=== PATIENT | female | born 1960 | race American Indian/Alaskan Native ===

== ENCOUNTER 2017-01-27 17:15 | Inpatient (IN) | payer OTHER ==
[2017-01-27 19:18] LABS: Basophils % (Auto) 1.7 % (0.0-1.8); Eosinophils % (Auto) 1.2 % (0.0-4.3); Hematocrit 38.7 % (30.3-42.9); Hemoglobin 12.9 gm/dl (10.1-14.3); Mean Corpuscular HGB Conc 33 % (30-34); Mean Corpuscular Hemoglobin 28 pg (28-32); Mean Corpuscular Volume 84 fl (79-97); Platelet Count 180 K/mm3 (140-440); Red Blood Count 4.63 M/mm3 (3.65-5.03); Red Cell Distribution Width 13.3 % (13.2-15.2); White Blood Count 3.2 K/mm3 (4.5-11.0)
[2017-01-27 19:26] LABS: Anion Gap 14 mmol/L; BUN/Creatinine Ratio 13.33; Blood Urea Nitrogen 8 mg/dL (7-17); Carbon Dioxide 29 mmol/L (22-30); Glucose 293 mg/dL (65-100); Potassium 3.8 mmol/L (3.6-5.0); Sodium 136 mmol/L (137-145)
[2017-01-27 19:30] LABS: INR 1.05 (0.87-1.13); Partial Thromboplastin Time 22.9 Sec. (24.2-36.6)
--- NOTE | 2017-01-27 19:38 | Cat Scan Report ---
FINAL REPORT EXAM: CT HEAD/BRAIN WO CON HISTORY: neuro deficits TECHNIQUE: Noncontrast serial axial images from skull base to vertex. PRIORS: None. FINDINGS: There is no mass effect or midline shift. There are no abnormal intra or extra-axial fluid collections. Cortical sulci and lateral ventricles are within normal limits for size and configuration. Basilar cisterns are patent. No acute intracranial hemorrhage is identified. There is an asymmetric hypodense focus in the right basal ganglia that measures approximately 13 x 7 millimeters in axial dimension. Visualized paranasal sinuses and mastoid air cells are well aerated. No acute osseous abnormality is identified. IMPRESSION: 1. No abnormal mass or acute intracranial hemorrhage is identified. 2. Asymmetric hypodense focus in the right basal ganglia suggests infarct. There are currently no studies available for direct comparison. If there is concern for acute or subacute infarct, consider MRI with diffusion-weighted imaging for further evaluation.
[2017-01-27] MEDS ORDERED: LOPRESSOR PO ONE (21:36)
[2017-01-27] MEDS ORDERED: ASPIRIN PO ONE (21:36)
--- NOTE | 2017-01-27 21:37 | Emergency Department Report ---
ED Neuro Deficit HPI - General Chief Complaint: Dizziness Stated Complaint: OFF BALANCE/FELL 3 TIMES TODAY Time Seen by Provider: 01/27/17 21:21 Source: patient Mode of arrival: Ambulatory Limitations: No Limitations - History of Present Illness Initial Comments: This is a pleasant active 56-year-old female who reports three-day history of having some difficulty and unsteadiness when walking. She describes it as feeling somewhat dizzy and listing to the left side. She denies any headache associated with this. Denies any chest pain. States that she has not followed up with a doctor for quite some time. She also indicates some mild sensation of heaviness in the left arm she does not feel that there is any weakness however. She denies any specific trauma. She is quite active in general. She states she was even unloading a truck last night. Denies any vision changes or speech difficulties. Associated Symptoms: denies: confusion, chest pain, cough, loss of appetite, shortness of breath - Related Data Allergies/Adverse Reactions: Allergies Allergy/AdvReac Type Severity Reaction Status Date / Time shellfish derived AdvReac Intermediate CAN'T Verified 01/27/17 17:42 BREATHE, MOUTH,THROAT & LIPS SWELL ED Review of Systems ROS: Stated complaint: OFF BALANCE/FELL 3 TIMES TODAY Other details as noted in HPI Comment: All other systems reviewed and negative Constitutional: denies: chills, fever Eyes: denies: eye pain, eye discharge, vision change ENT: denies: ear pain, throat pain Respiratory: denies: cough, shortness of breath, wheezing Cardiovascular: denies: chest pain, palpitations Endocrine: no symptoms reported Gastrointestinal: denies: abdominal pain, nausea, diarrhea Genitourinary: denies: urgency, dysuria, discharge Musculoskeletal: denies: back pain, joint swelling, arthralgia Skin: denies: rash, lesions Neurological: abnormal gait, vertigo. denies: headache, weakness, paresthesias Psychiatric: denies: anxiety, depression Hematological/Lymphatic: denies: easy bleeding, easy bruising ED Past Medical Hx - Past Medical History Hx Hypertension: Yes Hx Diabetes: Yes Additional medical history: fibroids. palpitations - Surgical History Additional Surgical History: partial hysterectomy - Social History Smoking Status: Former Smoker Substance Use Type: Alcohol ED Neuro Physical Exam - General Limitations: No Limitations General appearance: alert, in no apparent distress Suspected Stroke: No - Head Head exam: Present: atraumatic, normocephalic - Eye Eye exam: Present: normal appearance, EOMI. Absent: scleral icterus - ENT ENT exam: Present: normal exam, normal orophraynx, mucous membranes moist - Neck Neck exam: Present: normal inspection. Absent: meningismus, lymphadenopathy - Respiratory Respiratory exam: Present: normal lung sounds bilaterally. Absent: respiratory distress, wheezes - Cardiovascular Cardiovascular Exam: Present: regular rate, normal rhythm. Absent: systolic murmur, diastolic murmur, rubs, gallop - GI/Abdominal GI/Abdominal exam: Present: soft, normal bowel sounds. Absent: distended, tenderness - Extremities Exam Extremities exam: Present: normal inspection. Absent: tenderness, normal capillary refill, pedal edema, calf tenderness - Back Exam Back exam: Present: normal inspection. Absent: tenderness, CVA tenderness (R), CVA tenderness (L) - Neurological Exam Neurological exam: Present: alert, oriented X3, CN II-XII intact, normal gait, reflexes normal, other (downward Babinski bilaterally. Finger to nose is appropriate. Normal proprioception. Is able to do tandem gait without any difficulty at this time as well.). Absent: motor sensory deficit - NIHSS Assessment Interval: Baseline 1a. Level of Consciousness: alert 1b. LOC Questions: answers correctly 1c. LOC Commands: performs tasks correctly 2. Best Gaze: normal 3. Visual: no visual loss 4. Facial Palsy: normal symmetrical movement 5b. Motor Arm Right: no drift 5a. Motor Arm Left: no drift 6a. Motor Leg Left: no drift 6b. Motor Leg Right: no drift 7. Limb Ataxia: absent 9. Best Language: no aphasia 10. Dysarthria: normal 11. Extinction/Inattention: no abnormality - Psychiatric Psychiatric exam: Present: normal affect, normal mood - Skin Skin exam: Present: warm, dry, intact, normal color. Absent: rash ED Course Vital Signs 01/27/17 01/27/17 17:20 21:39 Temperature 98.2 F Pulse Rate 100 H 86 Respiratory 19 18 Rate Blood Pressure 196/124 Blood Pressure 209/124 [Left] O2 Sat by Pulse 98 100 Oximetry - Reevaluation(s) Reevaluation #1: 01/27/17 21:24 ECG at 1721 with sinus tachycardia at 101 bpm with a normal RI and QRS. Normal axis noted. Nonspecific T wave abnormalities are noted. There is one PVC noted as well. Otherwise not a STEMI. Reevaluation #2: 01/27/17 21:42 Patient presents to me after the labs and CT studies are done. The CT does demonstrate what appears to be an old right basilar stroke. Her presentation today does not seem consistent with the findings seen on the CT today. I do not suspect they correlate. I am concerned though given the patient clearly has had apparent CVA in the past and has uncontrolled hypertension as well as her hyperglycemia and has not been close to a followed by a physician. I feel she would benefit from getting inpatient carotid Dopplers and echocardiogram performed as well as further evaluation and care regarding possible stroke. Her dizziness and unsteadiness today are more subjective in nature. I'm not able to reproduce them. She does not have nystagmus for me here. While a central etiology of this is always a possibility inclined to suspect at this time. She does at the same time though seem like a very legitimate in October and patient. We'll talk to the hospitalist for admission and further evaluation and care - Lab Data Result diagrams: 01/27/17 18:51 01/27/17 18:51 Lab Results 01/27/17 01/27/17 01/27/17 Range/Units 17:37 18:51 18:51 WBC 3.2 L (4.5-11.0) K/mm3 RBC 4.63 (3.65-5.03) M/mm3 Hgb 12.9 (10.1-14.3) gm/dl Hct 38.7 (30.3-42.9) % MCV 84 (79-97) fl MCH 28 (28-32) pg MCHC 33 (30-34) % RDW 13.3 (13.2-15.2) % Plt Count 180 (140-440) K/mm3 Lymph % (Auto) 28.4 (13.4-35.0) % [place] % (Auto) 5.2 (0.0-7.3) % Eos % (Auto) 1.2 (0.0-4.3) % Baso % (Auto) 1.7 (0.0-1.8) % Lymph # 0.9 L (1.2-5.4) K/mm3 [place] # 0.2 (0.0-0.8) K/mm3 Eos # 0.0 (0.0-0.4) K/mm3 Baso # 0.1 (0.0-0.1) K/mm3 Seg Neutrophils % 63.5 (40.0-70.0) % Seg Neutrophils # 2.0 (1.8-7.7) K/mm3 PT 13.6 (12.2-14.9) Sec. INR 1.05 (0.87-1.13) APTT 22.9 L (24.2-36.6) Sec. Thrombin Time (15.1-19.6) Sec. Sodium (137-145) mmol/L Potassium (3.6-5.0) mmol/L Carbon Dioxide (22-30) mmol/L BUN (7-17) mg/dL Creatinine (0.7-1.2) mg/dL Estimated GFR ml/min BUN/Creatinine Ratio % Glucose (65-100) mg/dL POC Glucose 279 H (70-105) Calcium (8.4-10.2) mg/dL Troponin T (0.00-0.029) ng/mL 01/27/17 01/27/17 Range/Units 18:51 18:51 WBC (4.5-11.0) K/mm3 RBC (3.65-5.03) M/mm3 Hgb (10.1-14.3) gm/dl Hct (30.3-42.9) % MCV (79-97) fl MCH (28-32) pg MCHC (30-34) % RDW (13.2-15.2) % Plt Count (140-440) K/mm3 Lymph % (Auto) (13.4-35.0) % [place] % (Auto) (0.0-7.3) % Eos % (Auto) (0.0-4.3) % Baso % (Auto) (0.0-1.8) % Lymph # (1.2-5.4) K/mm3 [place] # (0.0-0.8) K/mm3 Eos # (0.0-0.4) K/mm3 Baso # (0.0-0.1) K/mm3 Seg Neutrophils % (40.0-70.0) % Seg Neutrophils # (1.8-7.7) K/mm3 PT (12.2-14.9) Sec. INR (0.87-1.13) APTT (24.2-36.6) Sec. Thrombin Time 17.1 (15.1-19.6) Sec. Sodium 136 L (137-145) mmol/L Potassium 3.8 (3.6-5.0) mmol/L Carbon Dioxide 29 (22-30) mmol/L BUN 8 (7-17) mg/dL Creatinine 0.6 L (0.7-1.2) mg/dL Estimated GFR > 60 ml/min BUN/Creatinine Ratio 13.33 % Glucose 293 H (65-100) mg/dL POC Glucose (70-105) Calcium 10.0 (8.4-10.2) mg/dL Troponin T < 0.010 (0.00-0.029) ng/mL - Radiology Data interpreted by me: CT brain with no abnormal mass or acute intracranial hemorrhage noted. #2 is asymmetric hypodense focus in the right basal ganglia. Critical care attestation.: If time is entered above; I have spent that time in minutes in the direct care of this critically ill patient, excluding procedure time. 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
[2017-01-27] MEDS ORDERED: DULCOLAX PR PRN (22:29)
[2017-01-27] MEDS ORDERED: MILK OF MAGNESIA PO PRN (22:29)
[2017-01-27] MEDS ORDERED: PROVENTIL IH PRN (22:29)
[2017-01-27] MEDS ORDERED: TYLENOL PO PRN (22:29)
[2017-01-27] MEDS ORDERED: SODIUM CHLORIDE FLUSH SYRINGE 10 ML IV PRN (22:29)
[2017-01-27] MEDS ORDERED: ZOFRAN IV PRN (22:29)
--- NOTE | 2017-01-27 22:31 | History and Physical Report ---
History of Present Illness Date of examination: 01/27/17 History of present illness: 56-year-old woman with a history of hypertension, diabetes who has been noncompliant with medication for 8 months comes emergency room with complaints of fall 3 today, she also fell a few days ago. Also complaining of dizziness and left arm weakness Patient denies chest pain, palpitation, shortness of breath, cough, abdominal pain, hematochezia, dysuria, frequency, dysarthria, fever chills, polydipsia polyuria, hot or cold intolerance, easy bruisability, or rash or bleeding from mucosal membrane, rhinorrhea, epistaxis, earache, tinnitus, blurry vision, eye discharge, anxiety, depression. Other review of systems negative. PAST SURGICAL HISTORY: Fibroidectomy SOCIAL HISTORY: Denies alcohol, tobacco, drugs FAMILY HISTORY: Hypertension Medications and Allergies Allergies Allergy/AdvReac Type Severity Reaction Status Date / Time shellfish derived AdvReac Intermediate CAN'T Verified 01/27/17 17:42 BREATHE, MOUTH,THROAT & LIPS SWELL Home Medications Medication Instructions Recorded Confirmed Last Taken Type Clopidogrel [Plavix] 75 mg PO QDAY #30 tablet 01/29/17 Unknown Rx Simvastatin [Zocor TAB] 40 mg PO QHS #30 tablet 01/29/17 Unknown Rx amLODIPine [Norvasc] 10 mg PO DAILY #30 tab 01/29/17 Unknown Rx metFORMIN [Glucophage] 500 mg PO BID #30 tablet 01/29/17 Unknown Rx Exam - Physical Exam Narrative exam: Gen. appearance: Patient lying in bed, no apparent distress HEENT: Normocephalic, atraumatic, pupils equally round and reactive to light, extraocular movement intact, and no sclericterus,. No JVD or thyromegaly or nodule,neck supple, no carotid bruit ,mucous membranes moist, no exudate or erythema Heart: S1, S2, regular rate and rhythm Lungs: Clear to auscultation bilaterally, breathing comfortable Abdomen: Positive bowel sounds, nontender, nondistended, no organomegaly Extremity: No edema, cyanosis, clubbing Skin: No rash, nodules, warm, dry Neuro: Oriented 3, cranial nerves II-12 intact, speech is fluent, left arm 4 over 5 and sensory intact - Constitutional Vitals: Temp Pulse Resp BP Pulse Ox 98.2 F 86 18 209/124 100 01/27/17 17:20 01/27/17 21:39 01/27/17 21:39 01/27/17 21:39 01/27/17 21:39 Results - Labs CBC & Chem 7: 01/27/17 18:51 01/29/17 05:49 Labs: Abnormal lab results 01/27/17 01/27/17 01/27/17 Range/Units 17:37 18:51 18:51 WBC 3.2 L (4.5-11.0) K/mm3 Lymph # 0.9 L (1.2-5.4) K/mm3 APTT 22.9 L (24.2-36.6) Sec. Sodium (137-145) mmol/L Creatinine (0.7-1.2) mg/dL Glucose (65-100) mg/dL POC Glucose 279 H (70-105) 01/27/17 Range/Units 18:51 WBC (4.5-11.0) K/mm3 Lymph # (1.2-5.4) K/mm3 APTT (24.2-36.6) Sec. Sodium 136 L (137-145) mmol/L Creatinine 0.6 L (0.7-1.2) mg/dL Glucose 293 H (65-100) mg/dL POC Glucose (70-105) - Imaging and Cardiology CT Scan - head: report reviewed Assessment and Plan Acute CVA Hypertension Diabetes of 2 Admits medicine Obtain MRI of the head, carotid Doppler, echo Do neurochecks, swallow screen Consult neurology, physical and occupational therapy Check fingersticks initiate insulin sliding scale Start IV hydralazine as needed for blood pressure control Start aspirin, statin ,DVT prophylaxis
[2017-01-27] MEDS ORDERED: D50W (25GM) IV PRN (23:51)
--- NOTE | 2017-01-28 07:46 | Admit Criteria Form ---
Admission Criteria Documentation: NEUROLOGY GRG Clinical Indications for Admission to Inpatient Care (Place ' X' for any and all applicable criteria): Hospital admission is needed for appropriate care of the patient because of 1 or more of the following: [ ]I. Encephalitis [ ]II. Severe FINANCE EXECUTIVE infections indicated by 1 or more of the following(1)(2)(3) : [ ]a) Intracranial abscess [ ]b) Spinal abscess or myelitis [ ]c) Tuberculous or other nonbacterial, nonviral FINANCE EXECUTIVE infection(8) [ ]III. Vasculitis and 1 or more of the following(14)(15): []a) Altered mental status that is severe or persistent or other acute neurologic change []b) Psychosis []c) Seizure [ ]IV. Status epilepticus or repetitive seizures not controlled with emergent treatment [A] (7)(8) [ ]V. Altered mental status that is severe or persistent [ ]. Transient alteration in consciousness with high-risk etiology; examples include (12)(13): [ ]a) Cardiovascular source [ ]b) Cataplexy [ ]VII. Cerebral aneurysm requiring ANY ONE of the following(14): [ ]a) IV antihypertensives or vasoactive agents [ ]b) Sedation and analgesia for suspected leak [ ]c) Need for external ventricular drainage and cerebral perfusion pressure monitoring [ ]d) Emergent evaluation to determine need for surgical clipping or endovascular coiling by interventional radiology. If surgery is required ( Also use Craniotomy, Supratentorial, for Surgery of Bleeding Intracranial Aneurysm (for bleeding aneurysm) or Craniotomy, Supratentorial (for nonbleeding aneurysm) as appropriate. [ ]VIII. New-onset severe neurologic symptom requiring inpatient care indicated by ANY ONE of the following: [ ]a) Aphasia(15) [ ]b) Weakness (grade 3 or less) [ ]c) Paralysis (eg, hemiplegia) [ ]d) Spasticity(16) [ ]e) Dystonia [ ]e) Ataxia(17) [ ]f) Amnesia(18) [ ]g) Involuntary movements(19) [ ]h) Vertigo [ ] Visual loss [ ]i) Other severe neurologic finding (eg, papilledema, mass effect on imaging, myoclonus not treatable at alternative level of care (eg, observation care) [ ]IX. Guillain-[place] syndrome(20) [ ]X. Myasthenia gravis crisis or inpatient monitoring need as indicated by 1 or more of the following(21): [ ]a) Intensive treatment (eg, course of plasmapheresis) with inadequate outpatient situation to monitor patients status [ ]b) Inadequate airway protection [ ]c) Respiratory insufficiency requiring intubation or inpatient. monitoring [ ]d) Progressive dysphagia with failure to thrive [ ]XI. Multiple sclerosis or other acute demyelinating disease requiring inpatient care as indicated by 1 or more of the following (22)(23): [ ]a) Acute severe deterioration requiring inpatient treatment (eg, IV steroids, plasmapheresis, close observation) [ ]b) Acute complication requiring inpatient care (eg, sepsis, severe decubitus, aspiration) [ ]XII.Parkinson disease requiring inpatient care (Also use Optimal Recovery Care Criteria or General Recovery Criteria as appropriate) indicated by 1 or more of the following(25): [ ]a) Infection (eg, aspiration pneumonia) not treatable at alternative level of care [ ]b Dehydration that is severe or persistent [ ]c) Life-threatening agitation or psychotic behavior not treatable on emergency, observation care, or alternative level (eg, residential) basis [ ]d) Severe medication withdrawal effects (eg, freezing, neuroleptic malignant syndrome) not responsive to emergency and observation care treatment ( as appropriate) [ ]e) Other severe manifestation not treatable at alternative level of care [ ]XII. Amyotrophic lateral sclerosis with inpatient care needs as indicated by ANY ONE of the following(26): [ ]a) Acute complications (eg, aspiration pneumonia, sepsis ) requiring inpatient care ( see other optimal Recovery Guideline as appropriate) [ ]b) Dehydration that is severe persistent AND artificial support desired [ ]c) Inadequate airway protection AND artificial support desired [ ]d) Severe ventilatory insufficiency AND artificial support desired [ ]XIII. Myasthenia gravis crisis or inpatient monitoring need as indicated by 1 or more of the following(21): [] a) Inadequate airway protection []b) Respiratory insufficiency requiring intubation or inpatient monitoring []c) Progressive dysphagia with failure to thrive []d) Intensive treatment (e.g., course of plasmapheresis) with inadequate outpatient situation to monitor patients status [ ]XIV. Multiple sclerosis or other acute demyelinating disease requiring inpatient care indicated by 1 or more of the following[C](36)(43)(44)(45)(46): []a) Acute severe deterioration requiring inpatient treatment (eg, IV steroids, plasmapheresis, close observation) []b) Acute complication requiring inpatient care (eg, sepsis, severe decubitus, aspiration) [ ]XV. Intracranial hypertension (e.g., pseudotumor cerebri) requiring inpatient care (e.g., acute visual loss, inadequate oral intake) (47)(48)(49) [ ]XVI. Parkinson disease requiring inpatient care (Also use Optimal Recovery Care Criteria or General Recovery Criteria as appropriate) indicated by 1 or more of the following(25): [] a) Infection (e.g., aspiration pneumonia) not treatable at alternative level of care []b) Volume depletion not responsive to emergency and observation care treatment (as appropriate) []c) Life-threatening agitation or psychotic behavior not treatable on emergency, observation care, or alternative level (e.g., residential) basis []d) Severe medication withdrawal effects (e.g., freezing, neuroleptic malignant syndrome) not responsive to emergency and observation care treatment (as appropriate) []e) Other severe manifestation not treatable at alternative level of care [ ]XVII. Amyotrophic lateral sclerosis with inpatient care needs as indicated by1 or more of the following(42): []a) Acute complications (eg, aspiration pneumonia, sepsis) requiring inpatient care (see other Optimal Recovery Guideline or General Recovery Guideline as appropriate) []b) Dehydration that is severe or persistent AND artificial support desired []c) Inadequate airway protection AND artificial support desired []d) Severe ventilatory insufficiency AND artificial support desired [ ]XVIII. Severe myopathy, neuropathy, or other neuromuscular disease indicated by 1 or more of the following(42)(52)(53)(54): []a ) New-onset severe diffuse weakness (eg, strength 3/5 or less) []b) Severe dysphagia []c) Dyspnea at rest or with minimal exertion (new) []d) Inadequate airway protection []e) Inadequate ventilation indicated by 1 or more of the following : i) Partial pressure of carbon dioxide greater than 44 mm Hg ( 5.9 kPa) (new) ii) Reduced peak expiratory flow rate (new) iii) Vital capacity less than 50% of predicted (less than 15 mL/kg) iv) Peak inspiratory force less negative than -30 cm H2O (- 2942 Pa) [ ]XVII.Complications of congenital or degenerative disease (eg, infection, seizures, dehydration, injury) not responsive to emergency and observation care treatment (as appropriate ) [C](16)(29)(30) [ ]XVIII.Suspected or confirmed nerve or muscle toxic injury, including ANY ONE of the following: [ ]a) Rhabdomyolysis(31) i) Acute renal failure ii) Dehydration that is severe or persistent iii) Altered mental status that is severe or persistent iv) Electrolyte abnormality that remains after emergency or observation level care ( as appropriate) [ ]b) Botulism(32) [ ]c) Other severe toxin-induced sign or symptom [ ]XIX. Neurologic trauma requiring inpatient treatment (medical) indicated by ANY ONE of the following(33)(34): [ ]a) Vital signs or neurologic signs more frequently than every 4 hours [ ]b) Hyperosmolar therapy [ ]c) Respiratory monitoring [ ]d) Intracranial pressure monitoring and treatment [ ]e) Stabilization and immobilization device placement (eg, braces, body jacket) [ ]f) Intubation & mechanical ventilation for airway protection or therapeutic hyperventilation [ ]g) Other treatment or monitoring needed that requires inpatient level of care [ ]XX.Complications of neurologic devices (eg, ventricular shunt, neurostimulator) requiring 1 or more of the following(35)(36): [ ]a) IV antibiotics with monitoring while awaiting culture results [ ]b) Monitoring for hydrocephalus [X ]XXI. Neurology condition symptom, or finding for which emergency and observation care have failed or are not considered appropriate. See General Criteria: Observation Care ISC, General Admission Criteria GRG, or Pediatric General Admission Criteria GRG guideline as appropriate. The original [facility] [employer] content created by [email or web address] has been revised. The portions of the content which have been revised are identified through the use of italic text or in bold, and [facility] has neither reviewed nor approved the modified material. All other unmodified content is copyright [facility] Please see references footnoted in the original [facility] edition 2016 Admission Criteria Met: Yes
[2017-01-28] MEDS: NOVOLOG SUB-Q SCH ×5 (08:30→23:14)
[2017-01-28] MEDS ORDERED: LOVENOX SUB-Q SCH (10:00)
[2017-01-28] MEDS ORDERED: ASPIRIN PO SCH (10:00)
--- NOTE | 2017-01-28 10:53 | Magnetic Resonance Report ---
MRI BRAIN WITHOUT CONTRAST INDICATION: Stroke. COMPARISON: None similar. FINDINGS: Noncontrast multiplanar and multisequence MRI of the brain demonstrates approximately 1.8 x 1 cm restricted diffusion in the right gallagher radiata/white matter adjacent to the mid body of the right lateral ventricle, axial diffusion series 4, image 23. It measures 1.4 cm craniocaudal, extending to the right basal ganglia. No other acute infarct, hemorrhage, mass effect or midline shift. No abnormal extra axial masses or fluid collection. Preserved ventricles and sulci. Normal major intracranial vascular flow voids. Normal posterior fossa with symmetric seventh and eighth nerve complexes. Somewhat prominent premedullary cistern versus approximately 2 cm arachnoid cyst questioned, axial series 6, image 8. Normal eye globes. Old, depressed left lamina papyracea fracture. Clear imaged paranasal sinuses and mastoid air cells. Normal remainder midline structures without evidence of Chiari malformation. Multilevel cervical spondylosis with bridging osteophytes/possible DISH. CONCLUSION: 1. Right gallagher radiata/periventricular white matter acute infarct extending to the basal ganglia, as described. 2. Other findings, as above. Thank you for the opportunity to participate in this patient's care.
--- NOTE | 2017-01-28 12:25 | Consultation ---
History of Present Illness Consult date: 01/28/17 Requesting physician: REID RENEE Reason for Consult: stroke Chief complaint: L sided weakness History of present illness: 56 YO F Hx HTN/DM2 on ASA 81mg QDay p/w 1-2 weeks of new onset difficulty walking. On 01/26 she noticed difficulty with her left hand when she was playing piano-weakness. Sx are constant. There are no clear aggravating, relieving or temporal factors. Severity was enough to cause inability to effectively use the left side. Past History Past Medical History: diabetes, hypertension Past Surgical History: No surgical history Social history: single, Lives alone. denies: smoking, alcohol abuse, prescription drug abuse, IV drug use Family history: hypertension Medications and Allergies Allergies Allergy/AdvReac Type Severity Reaction Status Date / Time shellfish derived AdvReac Intermediate CAN'T Verified 01/27/17 17:42 BREATHE, MOUTH,THROAT & LIPS SWELL Home Medications Medication Instructions Recorded Confirmed Last Taken Type No Known Home Medications [No 01/28/17 01/28/17 Unknown History Reported Home Medications] Active Meds: Active Medications Acetaminophen (Tylenol) 650 mg PO Q4H PRN PRN Reason: Pain, Mild (1-3) Albuterol (Proventil) 2.5 mg IH Q3HRT PRN PRN Reason: Shortness Of Breath Bisacodyl (Dulcolax) 10 mg LA QDAY PRN PRN Reason: Constipation Clopidogrel Bisulfate (Plavix) 75 mg PO QDAY [facility] Dextrose (D50w (25gm)) 50 ml IV PRN PRN PRN Reason: Hypoglycemia Enoxaparin Sodium (Lovenox) 40 mg SUB-Q QDAY [facility] Last Admin: 01/28/17 11:46 Dose: 40 mg Insulin Aspart (Novolog) 0 units SUB-Q ACHS MARGO PRN Reason: Protocol Last Admin: 01/28/17 11:14 Dose: 3 units Magnesium Hydroxide (Milk Of Magnesia) 30 ml PO Q4H PRN PRN Reason: Constipation Ondansetron HCl (Zofran) 4 mg IV Q8H PRN PRN Reason: N/V unrelieved by Reglan Simvastatin (Zocor) 40 mg PO QHS [facility] Sodium Chloride (Sodium Chloride Flush Syringe 10 Ml) 10 ml IV PRN PRN PRN Reason: LINE FLUSH Review of Systems All systems: negative Constitutional: fatigue Neurological: weakness, lack of coordination, balance difficulties, gait dysfunction, motor disturbance, no parathesias, no numbness, no tingling, no sensory deficit, no double vision, no loss of vision Physical Examination - Vital Signs Vital Signs: Vital Signs Temp Pulse Resp BP Pulse Ox 98.2 F 100 H 19 196/124 98 01/27/17 17:20 01/27/17 17:20 01/27/17 17:20 01/27/17 17:20 01/27/17 17:20 - Constitutional General appearance: comfortable - EENT EENT: Present: ATNC, PERRL, mucous membranes moist, hearing intact, vision intact - Respiratory Respiratory: Present: chest non-tender, normal breath sounds, no respiratory distress - Cardiovascular Cardiovascular: Present: regular rate Extremities: Present: no peripheral edema bilatateraly, no clubbing, cyanosis, no inflammation, no ischemia or petechiae - Gastrointestinal Gastrointestinal: Present: normoactive bowel sounds, soft, non-distended - Integumentary Integumentary: Present: normal - Neurologic Cranial nerve examination: PERRL, EOMI, VFF, V1/V2/V3 grossly intact, tongue midline, intact, intact shoulder shrug, intact cough reflex, Intact Vestibulo- ocular r, intact corneal reflex, facial droop (on L), normal palatal elevation Speech examination: intact Sensorimotor examination: pronator drift (on L), hemiparesis (on L) Motor examination - right side: 5/5: biceps, triceps, wrist flexion, wrist extension, hand coper, hip flexors, knee extensors, dorsiflexion, toe extension (EHL) , plantarflexion Motor examination - left side: 4/5: biceps, triceps, wrist flexion, wrist extension, hand coper, hip flexors, knee extensors, dorsiflexion, toe extension (EHL) , plantarflexion Detailed sensory examination: intact, light touch, temperature Reflex and gait examination: Babinski's sign (on L) Reflexes: 3+: ankle (on L), bicep, knee, tricep Cerebellar examination: ataxia (on LUE), dysmetria (on LUE), dysdiadochokinesia (on LUE) - Musculoskeletal Musculoskeletal: Present: no fluid collection, no pain, normal range of motion - Psychiatric Psychiatric: Present: mood/affect appropriate, cooperative Results - Laboratory Findings CBC and BMP: 01/27/17 18:51 01/27/17 18:51 Abnormal Lab Findings: Abnormal Labs 01/28/17 01/28/17 04:01 11:02 POC Glucose 178 H Cholesterol 215 H LDL Cholesterol Direct 138 H HDL Cholesterol 62 H Assessment and Plan 56 YO F Hx HTN/DM2 on ASA 81mg Qday p/w 1-2 weeks of new onset vague difficulty walking but clear wake up LUE weakness on 01/26. Neuro exam and MRI Brain confirm small vessel acute lacunar infarct to R gallagher radiata w/ some ataxic- hemiparesis syndrome.CDs neg. LDL 138 Plan and Recommendation: 1. No indication for pharmacologic thrombolysis with IV tPA or mechanical thrombectomy due to last known normal > 6 hrs from presentation. Current NIHSS 3. 2. Telemetry bed w/ Q4 hour neuro checks 3. TTE to eval for possible cardiac source of embolism 4. Autoregulate SBP to goal 120-160 as pt is outside permissive HTN window. 5. Secondary stroke prevention: Change ASA to Plavix 75mg QDay & upgrade to full dose statin therapy (Crestor 20mg or 40mg OR Lipitor 40mg or 80mg Daily OR Zocor 40mg QDay) for goal LDL < 70. 6. F/E/N: isotonic IVF prn, prn replete, bedside speech/swallow eval prior to PO intake. 7. DVT Prophylaxis 8. Stroke education, PT/OT/Speech Therapy consults, CM evaluation 9. For any changes in neurologic status, pls obtain STAT CTH w/o contrast and call neurology 10. If TTE neg for acute thrombus and pt remains clinically stable, she can likely be D/C over weekend.
[2017-01-28] MEDS ORDERED: APRESOLINE IV PRN (14:56)
[2017-01-28] MEDS ORDERED: APRESOLINE ONE (14:58)
--- NOTE | 2017-01-28 15:05 | Progress Note ---
Assessment and Plan Assessment and plan: CVA HTN - confirmed CT and MRI head - Patient is on Plavix, statin, physical therapy evaluation - Neurology consult appreciated - permissive hypertension with hydralazine PRN - Echo is pending Disposition - Continue inpatient care History Interval history: patient was seen and evaluated this morning, patient complains mild weakness of the left upper extremity, with recurrent falls. Hospitalist Physical - Physical exam Narrative exam: Not in cardiopulmonary distress. The patient appeared well nourished and normally developed. Vital signs as documented. Head exam is unremarkable. No scleral icterus . Neck is without jugular venous distension, thyromegaly, or carotid bruits. Lungs are clear to auscultation. Cardiac exam reveals regular rate and Rhythm. First and second heart sounds normal. No murmurs, rubs or gallops. Abdominal exam reveals normal bowel sounds, no masses, no organomegaly and no aortic enlargement. Extremities are nonedematous and both femoral and pedal pulses are normal. [facility]: Alert and oriented 3. Power 4/5 in the LUE. - Constitutional Vitals: Temp Pulse Resp BP Pulse Ox 98.0 F 85 13 174/97 98 01/28/17 14:24 01/28/17 14:51 01/28/17 14:51 01/28/17 14:51 01/28/17 14:51 Results - Labs CBC & Chem 7: 01/27/17 18:51 01/27/17 18:51 Labs: Laboratory Last Values WBC 3.2 K/mm3 (4.5-11.0) L 01/27/17 18:51 RBC 4.63 M/mm3 (3.65-5.03) 01/27/17 18:51 Hgb 12.9 gm/dl (10.1-14.3) 01/27/17 18:51 Hct 38.7 % (30.3-42.9) 01/27/17 18:51 MCV 84 fl (79-97) 01/27/17 18:51 MCH 28 pg (28-32) 01/27/17 18:51 MCHC 33 % (30-34) 01/27/17 18:51 RDW 13.3 % (13.2-15.2) 01/27/17 18:51 Plt Count 180 K/mm3 (140-440) 01/27/17 18:51 Lymph % (Auto) 28.4 % (13.4-35.0) 01/27/17 18:51 Boyle % (Auto) 5.2 % (0.0-7.3) 01/27/17 18:51 Eos % (Auto) 1.2 % (0.0-4.3) 01/27/17 18:51 Baso % (Auto) 1.7 % (0.0-1.8) 01/27/17 18:51 Lymph # 0.9 K/mm3 (1.2-5.4) L 01/27/17 18:51 Boyle # 0.2 K/mm3 (0.0-0.8) 01/27/17 18:51 Eos # 0.0 K/mm3 (0.0-0.4) 01/27/17 18:51 Baso # 0.1 K/mm3 (0.0-0.1) 01/27/17 18:51 Seg Neutrophils % 63.5 % (40.0-70.0) 01/27/17 18:51 Seg Neutrophils # 2.0 K/mm3 (1.8-7.7) 01/27/17 18:51 PT 13.6 Sec. (12.2-14.9) 01/27/17 18:51 INR 1.05 (0.87-1.13) 01/27/17 18:51 APTT 22.9 Sec. (24.2-36.6) L 01/27/17 18:51 Thrombin Time 17.1 Sec. (15.1-19.6) 01/27/17 18:51 Sodium 136 mmol/L (137-145) L 01/27/17 18:51 Potassium 3.8 mmol/L (3.6-5.0) 01/27/17 18:51 Carbon Dioxide 29 mmol/L (22-30) 01/27/17 18:51 BUN 8 mg/dL (7-17) 01/27/17 18:51 Creatinine 0.6 mg/dL (0.7-1.2) L 01/27/17 18:51 Estimated GFR > 60 ml/min 01/27/17 18:51 BUN/Creatinine Ratio 13.33 % 01/27/17 18:51 Glucose 293 mg/dL (65-100) H 01/27/17 18:51 POC Glucose 178 (70-105) H 01/28/17 11:02 Calcium 10.0 mg/dL (8.4-10.2) 01/27/17 18:51 Troponin T < 0.010 ng/mL (0.00-0.029) 01/27/17 18:51 Triglycerides 75 mg/dL (2-149) 01/28/17 04:01 Cholesterol 215 mg/dL (50-199) H 01/28/17 04:01 LDL Cholesterol Direct 138 mg/dL (50-130) H 01/28/17 04:01 HDL Cholesterol 62 mg/dL (40-59) H 01/28/17 04:01 Cholesterol/HDL Ratio 3.46 % 01/28/17 04:01 - Imaging and Cardiology MRI - head: image reviewed (right CVA)
[2017-01-28] MEDS ORDERED: ZOCOR PO SCH ×2 (22:00)
[2017-01-29 06:23] LABS: Blood Urea Nitrogen 8 mg/dL (7-17); Calcium 9.5 mg/dL (8.4-10.2); Carbon Dioxide 21 mmol/L (22-30); Chloride 102.3 mmol/L (98-107); Glucose 188 mg/dL (65-100); Potassium 3.8 mmol/L (3.6-5.0); Sodium 139 mmol/L (137-145)
[2017-01-29 06:24] LABS: Anion Gap 20 mmol/L
[2017-01-29] MEDS: NOVOLOG SUB-Q SCH (09:08)
[2017-01-29] MEDS ORDERED: PLAVIX PO SCH (10:00)
--- NOTE | 2017-01-29 10:54 | Discharge Summary ---
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 Also complaining of dizziness and left arm weakness. CT and MRI was done" from acute stroke on the right side, patient was off the window period for tpa. Neurology consult appreciated. All other workups for the cause of stroke are unremarkable. Patient was discharged with home medications plus plavix, statin and home PT. patient was stable at the time of discharge. All concerns were answered at the bedside. Disposition: DC/TX HOME UND[facility] Time spent for discharge: 31 minutes - Discharge Diagnoses (1) CVA (cerebral vascular accident) Status: Acute Qualifiers: CVA mechanism: C Precerebral and cerebral artery: P Laterality of affected vessel: L (2) Dizziness Status: Acute (3) HTN (hypertension) Status: Acute Qualifiers: Hypertension type: essential hypertension Qualified Code(s): I10 - Essential (primary) hypertension (4) Hyperglycemia due to type 2 diabetes mellitus Status: Acute Qualifiers: Diabetes mellitus steward/stewardess second class insulin use: without retirement use Qualified Code(s): E11.65 - Type 2 diabetes mellitus with hyperglycemia Core Measure Documentation - Palliative Care Palliative Care/ Comfort Measures: Not Applicable - Core Measures Any of the following diagnoses?: none Exam - Physical Exam Narrative exam: Not in cardiopulmonary distress. The patient appeared well nourished and normally developed. Vital signs as documented. Head exam is unremarkable. No scleral icterus . Neck is without jugular venous distension, thyromegaly, or carotid bruits. Lungs are clear to auscultation. Cardiac exam reveals regular rate and Rhythm. First and second heart sounds normal. No murmurs, rubs or gallops. Abdominal exam reveals normal bowel sounds, no masses, no organomegaly and no aortic enlargement. Extremities are nonedematous and both femoral and pedal pulses are normal. HTML DEVELOPER: Alert and oriented 3. Power 4/5 in the LUE. - Constitutional Vitals: Temp Pulse Resp BP Pulse Ox 98.9 F 104 H 20 158/103 99 01/29/17 07:00 01/29/17 08:42 01/29/17 07:00 01/29/17 07:00 01/29/17 07:00 Plan Activity: fall precautions Weight Bearing Status: Full Weight Bearing Diet: low cholesterol, low salt, diabetic Follow up with: PRIMARY CARE, [Primary Care Provider] - 7 Days Forms: Work/School Release Form Prescriptions: Simvastatin [Zocor TAB] 40 mg PO QHS #30 tablet amLODIPine [Norvasc] 10 mg PO DAILY #30 tab Clopidogrel [Plavix] 75 mg PO QDAY #30 tablet metFORMIN [Glucophage] 500 mg PO BID #30 tablet
[2017-01-29 13:12] VITALS: BP 163/101
== END 2017-01-29 16:04 | disposition home health service (06) | DRG 65 ==
LOC: ED 17:15 → 4A 22:29
PROVIDERS: ADMIT Internal Medicine; ATTEND Internal Medicine
DX: I63.9 Cerebral infarction, unspecified (principal); G81.90 Hemiplegia, unspecified affecting unspecified side; Z91.013 Allergy to seafood; I10 Essential (primary) hypertension; Z90.711 Acquired absence of uterus with remaining cervical stump; E11.65 Type 2 diabetes mellitus with hyperglycemia; Z91.19 Patient's noncompliance with other medical treatment and regimen; Z82.49 Family history of ischemic heart disease and other diseases of the circulatory system; Z90.89 Acquired absence of other organs; Z60.2 Problems related to living alone; Z79.82 Long term (current) use of aspirin
CPT/HCPCS: 36415; 70450; 70551; 80048; 80061; 82962; 83036; 84484; 85025; 85610; 85670; 85730; 93005; 93010; 93306; 93880; 96372; J0360; J1650; J1815